=== PATIENT | female | born 1965 | race Caucasian/White ===

== ENCOUNTER 2016-08-16 14:37 | Emergency (ER) | payer OTHER ==
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
--- NOTE | 2016-08-16 16:13 | ED ORDER SUMMARY ---
..... Patient: MILA STILES OrderSheet [facility] VisitID: [id number] [address] [place] [address] 51y, F Registration Date/Time: 08/16/2016 ORDER SHEET Weight: 86.1 kg (stated) Allergies: No Known Drug Allergy GENERAL ORDERS: CT Sinus/Facial Bones wo Cont Urgent (14:55 08/16/2016 Yoon Benito) (Ack 15:05 Caden) (16:11 Flores Villanueva.NYogi) MEDICATION ORDERS: Toradol IM 60 mg (NOW) (14:57 08/16/2016 Yoon Benito) (15:11 Flores Medeiros.) IV FLUIDS: ORDER SHEET NOTES: [Electronically signed by Aroldo Pike R.N. (16:31 08/16/2016)] [Electronically signed by Paras Zhou Dr. (08:51 08/17/2016)] [Electronically locked/signed by Aroldo Pike R.N. (16:31 08/16/2016)]
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
--- NOTE | 2016-08-16 16:13 | ED ORDER SUMMARY ---
..... Patient: MILA STILES OrderSheet [facility] VisitID: [id number] [address] [place] [address] 51y, F Registration Date/Time: 08/16/2016 ORDER SHEET Weight: 86.1 kg (stated) Allergies: No Known Drug Allergy GENERAL ORDERS: CT Sinus/Facial Bones wo Cont Urgent (14:55 08/16/2016 Yoon Benito) (Ack 15:05 Caden) (16:11 Flores Villanueva.NYogi) MEDICATION ORDERS: Toradol IM 60 mg (NOW) (14:57 08/16/2016 Yoon Benito) (15:11 Flores Medeiros.) IV FLUIDS: ORDER SHEET NOTES: [Electronically signed by Aroldo Pike R.N. (16:31 08/16/2016)] [Electronically signed by Paras Zhou Dr. (08:51 08/17/2016)] [Electronically locked/signed by Aroldo Pike R.N. (16:31 08/16/2016)]
--- NOTE | 2016-08-17 08:51 | ED MED RECONCILIATION SUMMARY ---
Patient: MILA STILES Medication Reconciliation Report [facility] VisitID: [id number] [address] [place] [address] 51y, F Registration Date/Time: 08/16/2016 Weight: 86.1 kg Height/Length: 108 in. BMI: 11.4 ALLERGIES: No Known Drug Allergy The patient's Home Medications are listed below: CONTINUE TAKING THE FOLLOWING MEDICATIONS: PROzac Oral Wellbutrin Oral The source(s) of the original Home Medication information: patient The following Medications were given to the patient in the Emergency Department: Toradol [IM] IM 60 mg, administered: 08/16/2016 3:10:00 PM The following Medications were prescribed to the patient: Hydrocodone/APAP 5mg / 325mg: take 1 orally every 6 hours as needed for pain. Dispense fifteen (15). No refill. -- Paras Zhou Dr.
--- NOTE | 2016-08-17 08:51 | ED MAR SUMMARY ---
..... Medication Administration Record [facility] [address] [place] [address] Patient: MILA STILES Visit ID: [id number] 51y, F Weight: 86.1 kg Height/Length: 108 in BMI: 11.4 ALLERGIES: No Known Drug Allergy Given 15:10 08/16/2016 Aroldo Pike R.N. Medication Administered: TORADOL [IM] (KETOROLAC TROMETHAMINE), Dose: 60 mg IM. Medication Ordered: Toradol IM 60 mg (NOW).
--- NOTE | 2016-08-17 08:51 | ED MED RECONCILIATION SUMMARY ---
Patient: MILA STILES Medication Reconciliation Report [facility] VisitID: [id number] [address] [place] [address] 51y, F Registration Date/Time: 08/16/2016 Weight: 86.1 kg Height/Length: 108 in. BMI: 11.4 ALLERGIES: No Known Drug Allergy The patient's Home Medications are listed below: CONTINUE TAKING THE FOLLOWING MEDICATIONS: PROzac Oral Wellbutrin Oral The source(s) of the original Home Medication information: patient The following Medications were given to the patient in the Emergency Department: Toradol [IM] IM 60 mg, administered: 08/16/2016 3:10:00 PM The following Medications were prescribed to the patient: Hydrocodone/APAP 5mg / 325mg: take 1 orally every 6 hours as needed for pain. Dispense fifteen (15). No refill. -- Paras Zhou Dr.
--- NOTE | 2016-08-17 08:51 | ED MAR SUMMARY ---
..... Medication Administration Record [facility] [address] [place] [address] Patient: MILA STILES Visit ID: [id number] 51y, F Weight: 86.1 kg Height/Length: 108 in BMI: 11.4 ALLERGIES: No Known Drug Allergy Given 15:10 08/16/2016 Aroldo Pike R.N. Medication Administered: TORADOL [IM] (KETOROLAC TROMETHAMINE), Dose: 60 mg IM. Medication Ordered: Toradol IM 60 mg (NOW).
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
== END 2016-08-16 16:27 | disposition home or self-care (01) ==
LOC: ED SRH 14:37
DX: S01.511A Laceration without foreign body of lip, initial encounter (principal); S00.83XA Contusion of other part of head, initial encounter; Y04.8XXA Assault by other bodily force, initial encounter; Y93.89 Activity, other specified; Y92.410 Unspecified street and highway as the place of occurrence of the external cause; Y99.0 Civilian activity done for income or pay